=== PATIENT | male | born 1950 | race Caucasian/White ===

== ENCOUNTER 2025-04-19 18:21 | Emergency (ER) | payer OTHER ==
[~2025-04-19] VITALS: Ht 177.8 cm; Wt 84.0 kg
--- NOTE | 2025-04-19 18:41 | ED.PDOC ---
History of Present Illness HPI Comments 74 y/o M is BIBA for c/c of generalized weakness and dizziness. Per EMS personnel report, patient was with his spouse driving when he experienced sudden and unprovoked onset of symptoms. Significant history for multiple TIA's - formerly on Plavix and, now, is on ASA, DM, and HTN. No endorsed recent injuries or ailments. mLAPSS negative. Initial blood glucose and blood pressure of 119 and 180 systolic, respectively. Patient reports associated chills and describes dizziness as intermittent and room spinning. Denies any further acute symptoms. 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 Past Medical History PAST MEDICAL HISTORY: DM, HTN, TIA Surgical History (Other): prostate band surgery Family History Family History: Unknown Social History Smoker: Non-Smoker Alcohol: Denies ETOH Use Drugs: Denies Drug Use Lives In: Home All Other Systems: Reviewed and Negative (As per HPI) Physical Exam General Appearance: Mild Distress, Normal HEENT: Normal ENT Inspection, Pharynx Normal, TMs Normal Neck: Full Range of Motion, Non-Tender, Normal, Normal Inspection Respiratory: Chest Non-Tender, Lungs Clear, No Accessory Muscle Use, No Respiratory Distress, Normal Breath Sounds Cardiovascular: No Edema, No JVD, No Murmur, No Gallop, Normal Peripheral Pulses, Regular Rate/Rhythm Breast Exam: Deferred Gastrointestinal: No Organomegaly, Non Tender, No Pulsatile Mass, Normal Bowel Sounds, Soft Genitalia: Deferred Pelvic: Deferred Rectal: Deferred Extremities: No calf tenderness, Normal capillary refill, Normal inspection, Normal range of motion, Non-tender, No pedal edema Musculoskeletal : Apperance: Normal Neurologic: Alert, 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 Was a procedure done?: No Differential Dx Considerations may include: dehydration, electrolyte imbalance, UTI's, URI's, CVA - hemorrhagic vs ischemic, TIA, among others X-Ray, Labs, Meds, VS Vital Signs Date Time Temp Pulse Resp B/P (MAP) Pulse Ox O2 Delivery O2 Flow Rate FiO2 04/19/25 21:43 85 88 169/82 (111) 95 04/19/25 21:11 197/109 04/19/25 20:00 78 17 160/92 (114) 97 04/19/25 19:30 Room Air* 0 21 04/19/25 19:30 98.5 81 12 144/83 (103) 96 98.5 04/19/25 18:47 86 04/19/25 18:40 98.4 91 18 170/99 (122) 96 98.4 04/19/25 18:21 98.4 91 18 170/99 96 98.4 Lab Test 04/19/25 21:32 04/19/25 20:19 04/19/25 18:52 Range/Units Lactic Acid Level Pending 2.3 *H 0.4-2.0 mmol/L Urine Color Light-yellow Yellow Urine Clarity Clear Clear Urine pH 5.0 5.0-9.0 Urine Specific [place] 1.030 1.001-1.035 Urine Protein Negative Negative Urine Ketones 1+ H Negative Urine Blood Negative Negative /uL Urine Nitrite Negative Negative Urine Bilirubin Negative Negative Urine Urobilinogen Normal Negative mg/dL Urine Leukocyte Esterase Negative Negative /uL Urine RBC 1 0 - 3 /hpf Urine Microscopic WBC 4 H 0-3 /HPF Urine Squamous Epithelial Cells None seen <5 /hpf Urine Bacteria None seen None Seen /hpf Urine Glucose 4+ H Normal mg/dL White Blood Count 6.7 4.4-10.8 10^3/uL Red Blood Count 5.40 4.5-5.90 10^6/uL Hemoglobin 16.5 13.5-17.5 g/dL Hematocrit 48.1 41.0-53.0 % Mean Corpuscular Volume 89.1 80.0-100.0 fL Mean Corpuscular Hemoglobin 30.6 28.0-32.0 pg Mean Corpuscular Hemoglobin Concent 34.4 32.0-36.0 g/dL Red Cell Distribution Width 14.7 H 11.8-14.3 % Platelet Count 245 140-450 10^3/uL Mean Platelet Volume 7.4 6.9-10.8 fL Neutrophils (%) (Auto) 75.0 37.0-80.0 % Lymphocytes (%) (Auto) 15.3 10.0-50.0 % Monocytes (%) (Auto) 6.1 0.0-12.0 % Eosinophils (%) (Auto) 3.1 0.0-7.0 % Basophils (%) (Auto) 0.5 0.0-2.0 % Neutrophils # (Auto) 5.0 1.6-8.6 10 ^3/uL Lymphocytes # (Auto) 1.0 0.4-5.4 10 ^3/uL Monocytes # (Auto) 0.4 0-1.3 10 ^3/uL Eosinophils # (Auto) 0.2 0-0.8 10 ^3/uL Basophils # (Auto) 0 0-0.2 10 ^3/uL Nucleated Red Blood Cells 0.1 % Prothrombin Time 11.1 9.3-11.8 sec Prothrombin Time INR 1.05 0.9-1.15 Activated Partial Thromboplast Time 28.8 24.5-34.5 SEC Sodium Level 139 136-145 mmol/L Potassium Level 4.6 3.5-5.1 mmol/L Chloride Level 104 98-107 mmol/L Carbon Dioxide Level 25 20-31 mmol/L Anion Gap 10 5-15 Blood Urea Nitrogen 22 9-23 mg/dL Creatinine 1.25 0.700-1.30 mg/dL Glomerular Filtration Rate Calc 60 >90 mL/min BUN/Creatinine Ratio 17.6 10.0-20.0 Serum Glucose 113 H 74-106 mg/dL Calcium Level 9.9 8.7-10.4 mg/dL Total Bilirubin 0.7 0.2-1.0 mg/dL Aspartate Amino Transferase (AST) 31 13-40 U/L Alanine Aminotransferase (ALT) 36 7-40 U/L Alkaline Phosphatase 75 46-116 U/L Troponin I High Sensitivity 12 </=54 ng/L Total Protein 7.1 5.7-8.2 g/dL Albumin 4.7 3.2-4.8 g/dL Current Medications Medications (Trade) Dose Ordered Sig/Franklin Route Start Time Stop Time Status Last Admin Sodium Chloride 1,000 ml @ 1,000 mls/hr Q1H ONCE IV 04/19/25 18:45 04/19/25 19:44 DC 12/14/25 20:05 Aspirin 325 mg ONCE ONCE PO 04/19/25 20:15 04/19/25 20:16 DC 04/19/25 21:11 Hydralazine HCl (Apresoline Tablet) 25 mg ONCE ONCE PO 04/19/25 20:30 04/19/25 20:42 DC 04/19/25 21:11 Time of 1ST Reevaluation: 19:00 Reevaluation 1ST: Unchanged Patient Education/Counseling: Diagnosis, Treatment Family Education/Counseling: No Family Present SEPSIS Sepsis Screen Date sepsis recognized/suspect: Apr 19, 2025 Time Sepsis recognized/suspect: 1829 Recent Procedure: No On Antibiotic Therapy: No Respiratory Rate >20: No Heart Rate >90: No Temp<36 C (96.8 F) or >38.3 C: No SBP <90 or MAP <65 mmHG: No New Acute Mental Status Change: No Is the patient on CPAP, BIPAP,: No Physician Orders Troponin-I Hs (04/20/25 00:00) Troponin-I Hs (04/20/25 03:00) Troponin-I Hs (04/20/25 06:00) Blood Culture (04/19/25 18:36) Head Without Contrast (04/19/25 18:36) Rapid Influenza A&B (04/19/25 20:26) Covid19 Antigen Baylee (04/19/25 ) Vital Signs Date Time Temp Pulse Resp B/P (MAP) Pulse Ox O2 Delivery O2 Flow Rate FiO2 04/19/25 21:43 85 88 169/82 (111) 95 04/19/25 21:11 197/109 04/19/25 20:00 78 17 160/92 (114) 97 04/19/25 19:30 Room Air* 0 21 04/19/25 19:30 98.5 81 12 144/83 (103) 96 98.5 04/19/25 18:47 86 04/19/25 18:40 98.4 91 18 170/99 (122) 96 98.4 04/19/25 18:21 98.4 91 18 170/99 96 98.4 Laboratory Tests Test 04/19/25 18:52 04/19/25 21:32 Lactic Acid Level 2.3 mmol/L (0.4-2.0) *H Pending White Blood Count 6.7 10^3/uL (4.4-10.8) Medications Medications Dose Ordered Sig/Franklin Route Start Time Stop Time Status Last Admin Dose Admin Aspirin 325 mg ONCE ONCE PO 04/19/25 20:15 04/19/25 20:16 DC 04/19/25 21:11 Hydralazine HCl 25 mg ONCE ONCE PO 04/19/25 20:30 04/19/25 20:42 DC 04/19/25 21:11 Sodium Chloride 1,000 ml @ 1,000 mls/hr Q1H ONCE IV 04/19/25 18:45 04/19/25 19:44 DC 04/19/25 20:05 Departure 1 Departure Time of Disposition: 20:14 Impression: Primary Impression: Vertigo Additional Impression: TIA (transient ischemic attack) Disposition: 01 HOME / SELF CARE / HOMELESS Condition: Guarded Comments 74-year-old male with a history of previous TIAs now with a episode of severe vertigo. His symptoms have improved. He was given aspirin. Noncontrast CT shows no acute pathology. I will try to admit the patient for MRI and neuro monitoring. 9:50 p.m.: [facility] and [facility] reviewed the case and plan to schedule the patient for an MRI tomorrow as an outpatient. Critical Care Note Critical Care Time?: Yes (35 min-critical care time only) Critical care comment: Total critical care time: Approximately 36 minutes Due to a high probability of clinically significant, life threatening deteri oration, the patient required my highest level of preparedness to intervene emergently and I personally spent this critical care time directly and personally managing the patient. This critical care time included obtaining a history; examining the patient; pulse oximetry; ordering and review of studies; arranging urgent treatment with development of a management plan; evaluation of patient's response to treatment; frequent reassessment; and, discussions with other providers. This critical care time was performed to assess and manage the high probability of imminent, life-threatening deterioration that could result in multi-organ jones lure. It was exclusive of separately billable procedures and treating other patients. Stability Stability form required: No Heart Score Heart Score: Heart Score Response (Comments) Value History N/A 0 EKG N/A 0 Age N/A 0 Risk Factors N/A 0 Troponin N/A 0 Total 0 I personally scribed for MAE ARANGO MD ([email or web address]) on 04/19/25 at 18:41. Electronically submitted by Wilfredo Brown ([email or web address]). MAE ARANGO MD Apr 19, 2025 18:41
--- NOTE | 2025-04-19 19:01 | ECG ---
[facility] Test Date: 2025-04-19 Test Time: 18:47:39 Pat Name: NEENA LANCASTER Department: ED Room: Gender: M Credit Historian: kendra : 1950 Requested By: MAE ARANGO Order Number: [id number] Reading MD: Mark Hendrix Measurements Intervals [place] Rate: 86 P: 0 NM: 0 QRS: 37 QRSD: 121 T: 19 QT: 425 QTc: 509 Interpretive Statements Atrial fibrillation Right bundle branch block Minimal ST elevation, anterior leads Electronically Signed On 04-23-2025 17:16:15 PST by Mark Hendrix Please click the below link to view image of tracing.
[2025-04-19 19:24] LABS: Hematocrit 48.1 % (41.0-53.0); Hemoglobin 16.5 g/dL (13.5-17.5); Mean Corpuscular Hemoglobin 30.6 pg (28.0-32.0); Mean Corpuscular Volume 89.1 fL (80.0-100.0); Nucleated Red Blood Cells % 0.1 %
[2025-04-19 19:32] LABS: INR 1.05 (0.9-1.15); Partial Thromboplastin Time 28.8 SEC (24.5-34.5); Prothrombin Time 11.1 sec (9.3-11.8)
[2025-04-19 19:33] LABS: Alanine Aminotransferase 36 U/L (7-40); Albumin 4.7 g/dL (3.2-4.8); Alkaline Phosphatase 75 U/L (46-116); Anion Gap 10 (5-15); BUN/Creatinine Ratio 17.6 (10.0-20.0); Blood Urea Nitrogen 22 mg/dL (9-23); Calcium 9.9 mg/dL (8.7-10.4); Carbon Dioxide 25 mmol/L (20-31); Chloride 104 mmol/L (98-107); Glucose 113 mg/dL (74-106); Potassium 4.6 mmol/L (3.5-5.1); Sodium 139 mmol/L (136-145); Total Protein 7.1 g/dL (5.7-8.2)
[2025-04-19 19:34] LABS: Bilirubin, Total 0.7 mg/dL (0.2-1.0)
--- NOTE | 2025-04-19 20:00 | DVH ---
CT HEAD WITHOUT CONTRAST HISTORY: Vertigo. COMPARISON: None available. CONTRAST: Study was performed without contrast. TECHNIQUE: Axial images from the skull base to the vertex with coronal and sagittal reformatted images. Dose reduction technique was used on this scan by utilizing automated exposure control, adjustment of the mA and/or kV according to the patient size. DICOM format image data available to non-affiliated external healthcare facilities or entities on a secure, media free, reciprocally searchable basis with patient authorization for at least a 12 month period after the study. CTDIvol: 55.6 mGy; DLP: 891.6 mGy-cm. FINDINGS: BRAIN PARENCHYMA: No acute hemorrhage, large vascular territory infarct, or mass effect. White matter is within normal limits for age. VENTRICLES/EXTRA-AXIAL SPACES: No ventriculomegaly or extra-axial collection. Basal cisterns are patent. EXTRACRANIAL STRUCTURES: No acute or suspicious ossues abnormality. Mild degenerative changes of the right temporomandibular joint. Normal soft tissues. Partially images portions of the paranasal sinuses and mastoids demonstrate no significant abnormality. Bilateral lens replacements; otherwise, orbits are unremarkable. Mild calcific atherosclerosis of the carotid siphons. Incidentally noted high-riding right jugular bulb. IMPRESSION: No acute intracranial abnormality.
[2025-04-19] MEDS: SODIUM CHLORIDE 0.9% 1,000 ML IV ONE (20:05)
[2025-04-19 20:34] LABS: Urine Protein, UAD Negative (Negative)
[2025-04-19 20:37] LABS: Lactic Acid w/Reflex 2.3 mmol/L (0.4-2.0)
[2025-04-19 22:55] VITALS: BP 149/82; PULSE 88; RESP 15; TEMP 98.3; O2SAT 95
[2025-04-19 23:03] LABS: COVID19 ANTIGEN SOFIA FIA NEGATIVE (NEGATIVE)
--- NOTE | 2025-04-19 23:39 | DVH ---
CHEST RADIOGRAPH INDICATION: r/o PNA TECHNIQUE: Single frontal view of the chest was obtained COMPARISON: None FINDINGS: Lines and Tubes: None Lungs: Mild diffuse increased prominence of the pulmonary vasculature. No evidence of focal consolidation. Pleura: No effusion. No pneumothorax. Cardiomediastinal contours: Unremarkable Bones: Unremarkable IMPRESSION: 1. Mild diffuse increased prominence of the pulmonary vasculature. 2. No evidence of focal consolidation.
== END 2025-04-19 23:35 | disposition home or self-care (01) ==
LOC: ER 18:21 → EDBD 18:21 → ER 23:35
DX: G45.9 Transient cerebral ischemic attack, unspecified (principal); R42 Dizziness and giddiness; I10 Essential (primary) hypertension; E11.9 Type 2 diabetes mellitus without complications; Z79.82 Long term (current) use of aspirin; Z86.73 Personal history of transient ischemic attack (TIA), and cerebral infarction without residual deficits; Z20.822 Contact with and (suspected) exposure to COVID-19
CPT/HCPCS: 36415; 70450; 71045; 80053; 81001; 82947; 83605; 84484; 85025; 85610; 85730; 87040; 87426; 87804; 93005; 96360; 99291; J7030